=== PATIENT | male | born 1960 | race Caucasian/White ===

== ENCOUNTER → 2017-06-17 | Outpatient (REF) | LOC: M SMT 11:27 | DX: Z02.71 Encounter for disability determination (principal); R93.7 Abnormal findings on diagnostic imaging of other parts of musculoskeletal system ==

== ENCOUNTER 2020-05-09 07:43 | Day surgery (SDC) | payer MEDICARE ==
[~2020-05-09] VITALS: Ht 172.7 cm; Wt 72.6 kg
[~2020-05-09 07:43] MED LIST: ALBUTEROL SULFATE 2.5 MG/0.5 ML INH NEB SOLN INH ONE; CELE1CAP9 PO; ECOT81TA5 PO; FERR325T3 PO; LEVO25TA5 PO; LIDOCAINE 1% MDV 20ML VIAL SQ PRN; LIDOCAINE 4% INJ 5ML AMP NEB ONE; LR 1,000 ML IV ONE; OMEP-221 PO; PRED1TABL PO
[2020-05-09 08:17] LABS: PLATELET COUNT, AUTOMATED 191 10^3/uL (150-450)
[2020-05-09 08:27] LABS: INR 0.95; PROTHROMBIN TIME 12.8 SECONDS (12.5-14.3)
[2020-05-09 08:28] LABS: PARTIAL THROMBOPLASTIN TIME 28.6 SECONDS (24.2-38.5)
[2020-05-09] MEDS ORDERED: fentaNYL 100 MCG/2 ML INJECTION (J3010) As Ordered ONE (08:42)
[2020-05-09] MEDS ORDERED: ROCURONIUM BROMIDE 50 MG/5 ML VIAL As Ordered ONE (08:42)
[2020-05-09] MEDS ORDERED: ONDANSETRON 4MG/2ML VIAL As Ordered ONE (08:42)
[2020-05-09] MEDS ORDERED: MIDAZOLAM INJ 2MG/2ML VIAL (J2250 PER 1MG) As Ordered ONE (08:42)
[2020-05-09] MEDS ORDERED: propofoL 200 MG/20 ML VIAL As Ordered ONE ×2 (08:42→10:37)
[2020-05-09] MEDS ORDERED: LIDOCAINE 2% 100MG/5ML SDV (FOR ANES.) As Ordered ONE (08:42)
[2020-05-09] MEDS ORDERED: dexameTHASONE 4 MG/ML 1ML VIAL (J1100 PER 1MG) As Ordered ONE (08:42)
[2020-05-09] MEDS ORDERED: EPINEPHrine 1MG/10ML SYRINGE 1.5IN As Ordered ONE (09:18)
[2020-05-09] MEDS ORDERED: THROMBIN SOLN 20,000 UNITS KIT As Ordered ONE (09:18)
[2020-05-09] MEDS ORDERED: LIDOCAINE 1% MDV 20ML VIAL As Ordered ONE (09:18)
[2020-05-09] MEDS ORDERED: CETACAINE SPRAY 5GM As Ordered ONE (09:18)
[2020-05-09] MEDS ORDERED: THROMBIN SOLN 5,000 UNITS VIAL As Ordered ONE (09:20)
[2020-05-09] MEDS ORDERED: SUGAMMADEX SODIUM 500 MG/5 ML VIAL (BRIDION) As Ordered ONE (10:29)
--- NOTE | 2020-05-09 10:55 | REP ---
INDICATION: LEFT LOWER LOBE ABNORMALITY. COMPARISON: None. TECHNIQUE: Thirty-two images. 4 minutes 28 seconds of fluoroscopy time is reported. FINDINGS: A sequence of 32 fluoroscopically obtained intraprocedural spot radiographs of the left chest document bronchoscopic positioning and manipulation. IMPRESSION: Procedural imaging. <Electronically signed by Nic Rodriguez > 05/09/20 [id number]
--- NOTE | 2020-05-09 11:13 | RO ---
OPERATIVE NOTE DATE OF OPERATION: 05/09/2020 PREOPERATIVE DIAGNOSIS: Left lower lobe nodule. POSTOPERATIVE DIAGNOSIS: Left lower lobe nodule with chronic bronchitis. PROCEDURE: Fiberoptic bronchoscopy with wash, brush biopsies, photos, fine needle aspirate done with [place] [employer] Robotic assistance and fluoroscopy. SURGEON: Cristhian Waters MD CIVIL ENGINEER IN TRAINING: Dr. Love ANESTHESIA: General. Informed consent was obtained prior to the procedure. OPERATIVE FINDINGS: 1. Diffuse changes of chronic bronchitis. 2. Left lower lobe nodule. DESCRIPTION OF PROCEDURE: After the patient was identified and the above anesthesia given, the regular bronchoscope was used to confirm tube placement. The right and left lung were both examined. This was done in sequential fashion. All segments, subsegments, upper and lower lobes, as well as middle lobe on the right all widely patent. Diffuse changes of chronic bronchitis were noted but no focal endobronchial or mucosal abnormality. The [place] [employer] was then deployed. The scope was navigated to within 2 cm of the lesion in question with good target on the scope. Radial ultrasound probe was then passed. Placement was confirmed and fluoroscopic examination was performed as well. Brushes as well as fine needle aspirate were then performed. Multiple biopsies were taken as well. Touch prep was not able to confirm definitive diagnosis but formal biopsy results as well as aspirate results are pending. The area was then lavaged. Topical thrombin was then employed. The robotic platform was then removed. Using formal bronchoscopy the area was re-inspected. No significant bleeding was encountered. That scope was then withdrawn. Fluoroscopic examination done immediately postprocedure showed no evidence of pneumothorax. X-rays ordered for one hour postprocedure. Care was then turned over to anesthesia for reversal of anesthesia and extubation. No immediate complications of the procedure were identified.
[2020-05-09] MEDS ORDERED: METOCLOPRAMIDE INJ 10MG/2ML VIAL (J2765 PER 1) IV PRN (11:20)
[2020-05-09] MEDS ORDERED: ONDANSETRON 4MG/2ML VIAL IV PRN (11:20)
[2020-05-09] MEDS ORDERED: PERCOCET 5MG/325MG TAB PO PRN (11:20)
[2020-05-09] MEDS ORDERED: fentaNYL 100 MCG/2 ML INJECTION (J3010) IV PRN (11:20)
--- NOTE | 2020-05-09 11:54 | REP ---
INDICATION: POST OP. COMPARISON: None. TECHNIQUE: Portable upright AP chest radiograph. FINDINGS: Monitoring electrodes are seen. The lungs are well inflated and clear. The pleural angles are sharp. There is no evidence of pneumothorax or hydrothorax. Heart size is borderline. Pulmonary vasculature is not increased. There are multiple right-sided rib fractures. These were not apparent on comparison right shoulder radiographs from 2018. No other bony abnormality is seen. IMPRESSION: There are multiple right-sided rib fractures. The there is no evidence of pneumothorax, infiltrate, or hydrothorax. <Electronically signed by Nic Rodriguez > 05/09/20 [id number]
[2020-05-09 12:22] VITALS: BP 126/71
== END 2020-05-09 12:24 | disposition home or self-care (01) ==
LOC: M SDC 07:43
PROVIDERS: ATTEND Internal Medicine Pulmonary Disease
DX: R91.1 Solitary pulmonary nodule (principal); J42 Unspecified chronic bronchitis; Z87.891 Personal history of nicotine dependence; E03.9 Hypothyroidism, unspecified; K21.9 Gastro-esophageal reflux disease without esophagitis; M19.90 Unspecified osteoarthritis, unspecified site; F41.9 Anxiety disorder, unspecified; H90.42 Sensorineural hearing loss, unilateral, left ear, with unrestricted hearing on the contralateral side; F81.0 Specific reading disorder; Z85.21 Personal history of malignant neoplasm of larynx; Z79.899 Other long term (current) drug therapy; Z79.82 Long term (current) use of aspirin; Z79.52 Long term (current) use of systemic steroids; Z79.1 Long term (current) use of non-steroidal anti-inflammatories (NSAID); Z92.21 Personal history of antineoplastic chemotherapy; Z92.3 Personal history of irradiation
CPT/HCPCS: 31623; 31624; 31628; 31629; 36415; 71045; 76000; 85027; 85610; 85730; 87070; 87102; 87116; 87205; 87206; 88104; 88173; 88305; J1100; J2250; J2405; J3010; S2900

== ENCOUNTER 2021-02-20 08:19 | Day surgery (SDC) | payer MEDICARE ==
[~2021-02-20] VITALS: Ht 172.7 cm; Wt 75.2 kg
[2021-02-20] MEDS ORDERED: ePHEDrine SULFATE 25 MG/5 ML(5MG/ML) SYRINGE As Ordered ONE (09:55)
[2021-02-20] MEDS ORDERED: PHENYLephrine 500MCG 5ML (100MCG/ML) SYRINGE As Ordered ONE (09:55)
[2021-02-20] MEDS ORDERED: fentaNYL 100 MCG/2 ML INJECTION (J3010) As Ordered ONE (09:55)
[2021-02-20] MEDS ORDERED: MIDAZOLAM INJ 2MG/2ML VIAL (J2250 PER 1MG) As Ordered ONE (09:55)
[2021-02-20] MEDS ORDERED: SUGAMMADEX SODIUM 500 MG/5 ML VIAL (BRIDION) As Ordered ONE (09:56)
[2021-02-20] MEDS ORDERED: propofoL 200 MG/20 ML VIAL As Ordered ONE (09:56)
[2021-02-20] MEDS ORDERED: LIDOCAINE 2% 100MG/5ML SDV (FOR ANES.) As Ordered ONE (09:56)
[2021-02-20] MEDS ORDERED: ROCURONIUM BROMIDE 50 MG/5 ML VIAL As Ordered ONE (09:56)
[2021-02-20] MEDS ORDERED: dexameTHASONE 4 MG/ML 1ML VIAL (J1100 PER 1MG) As Ordered ONE (09:56)
[2021-02-20] MEDS ORDERED: ONDANSETRON 4MG/2ML VIAL As Ordered ONE (09:56)
[2021-02-20] MEDS ORDERED: CETACAINE SPRAY 5GM As Ordered ONE (10:28)
[2021-02-20] MEDS ORDERED: THROMBIN SOLN 5,000 UNITS VIAL As Ordered ONE (10:28)
[2021-02-20] MEDS ORDERED: EPINEPHrine 1MG/10ML SYRINGE 1.5IN As Ordered ONE (10:28)
[2021-02-20] MEDS ORDERED: LIDOCAINE 1% MDV 20ML VIAL As Ordered ONE (10:29)
[2021-02-20] MEDS ORDERED: ACETAMINOPHEN 1000MG 100ML IV BTL (OFIRMEV) (J0131 PER 10MG) As Ordered ONE (10:57)
[2021-02-20] MEDS ORDERED: ONDANSETRON 4MG/2ML VIAL IV PRN (12:00)
[2021-02-20] MEDS ORDERED: HYDROMORPHONE HCL 0.5 MG/ 0.5 ML SYRINGE (J1170 PER 1) IV PRN (12:00)
[2021-02-20] MEDS ORDERED: oxyCODONE 5MG TAB PO PRN (12:00)
[2021-02-20] MEDS ORDERED: fentaNYL 100 MCG/2 ML INJECTION (J3010) IV PRN (12:00)
[2021-02-20] MEDS ORDERED: LR 1,000 ML IV SCH (12:00)
[2021-02-20 13:30] VITALS: BP 141/76
== END 2021-02-20 13:58 | disposition home or self-care (01) ==
LOC: M SDC 08:19
PROVIDERS: ATTEND Internal Medicine Pulmonary Disease
DX: C34.12 Malignant neoplasm of upper lobe, left bronchus or lung (principal); J42 Unspecified chronic bronchitis; R59.0 Localized enlarged lymph nodes; I71.4 Abdominal aortic aneurysm, without rupture; K21.9 Gastro-esophageal reflux disease without esophagitis; D64.9 Anemia, unspecified; M19.90 Unspecified osteoarthritis, unspecified site; Z87.828 Personal history of other (healed) physical injury and trauma; Z85.21 Personal history of malignant neoplasm of larynx; Z92.3 Personal history of irradiation; Z92.21 Personal history of antineoplastic chemotherapy; Z86.16 Personal history of COVID-19; Z87.891 Personal history of nicotine dependence; Z79.899 Other long term (current) drug therapy; Z79.82 Long term (current) use of aspirin; Z79.52 Long term (current) use of systemic steroids; Z79.1 Long term (current) use of non-steroidal anti-inflammatories (NSAID)
CPT/HCPCS: 31627; 31628; 31652; 31654; 71045; 76000; 88173; 88305; 93005; J0131; J1100; J2250; J2370; J2405; J3010

== ENCOUNTER → 2021-07-26 | Outpatient (CLI) | payer MEDICARE ==
[~2021-07-26] MED LIST changes: -ALBUTEROL SULFATE 2.5 MG/0.5 ML INH NEB SOLN INH ONE; -LIDOCAINE 1% MDV 20ML VIAL SQ PRN; -LIDOCAINE 4% INJ 5ML AMP NEB ONE; -LR 1,000 ML IV ONE; -OMEP-221 PO; +OMEP40CA5 PO
== END ==
LOC: M ONCR 13:44
PROVIDERS: ATTEND General Practice
DX: C34.12 Malignant neoplasm of upper lobe, left bronchus or lung (principal); C34.32 Malignant neoplasm of lower lobe, left bronchus or lung; Z85.21 Personal history of malignant neoplasm of larynx; Z79.82 Long term (current) use of aspirin; Z79.899 Other long term (current) drug therapy; Z87.891 Personal history of nicotine dependence; Z92.21 Personal history of antineoplastic chemotherapy; Z92.3 Personal history of irradiation

== ENCOUNTER → 2021-08-15 | Outpatient (RCR) | payer MEDICARE | LOC: M ONCR 07-31 08:14 | PROVIDERS: ATTEND General Practice | DX: C34.12 Malignant neoplasm of upper lobe, left bronchus or lung (principal); J44.9 Chronic obstructive pulmonary disease, unspecified; Z79.890 Hormone replacement therapy; Z79.899 Other long term (current) drug therapy; Z79.82 Long term (current) use of aspirin; Z87.891 Personal history of nicotine dependence; Z86.79 Personal history of other diseases of the circulatory system; Z80.0 Family history of malignant neoplasm of digestive organs ==

== ENCOUNTER 2021-08-16 11:25 | Outpatient (RCR) | payer MEDICARE | END 2021-09-15 | LOC: M ONCR 11:25 | PROVIDERS: ATTEND General Practice | DX: C34.12 Malignant neoplasm of upper lobe, left bronchus or lung (principal) ==